=== PATIENT | female | born 1960 | race Caucasian/White ===

== ENCOUNTER 2018-08-12 10:46 | Outpatient (CLI) | payer OTHER ==
--- NOTE | 2018-08-12 12:40 | MMO ---
BILATERAL SCREENING MAMMOGRAM: History: 58-year-old female. Routine screening mammography. Comparison: 05-17-17, 11-19-15, 10-04-14, 08-18-13 Technique: CC and MLO views of both breasts were submitted for interpretation. This study is interpreted with the assistance of computer aided detection. FINDINGS: Breasts are composed of heavily dense fibroglandular tissue which limits sensitivity of mammography i n the detection of underlying malignancy. Bilaterally, no suspicious dominant mass, architectural dis tortion or suspicious calcifications. Benign appearing calcification in the left breast. IMPRESSION: BIRADS category 2 - benign findings. RECOMMENDATION: Annual mammograms. POS: [facility]
== END 2018-08-12 10:47 | disposition home or self-care (01) ==
LOC: SCSMAMMO 10:46
PROVIDERS: ATTEND Obstetrics & Gynecology
DX: Z12.31 Encounter for screening mammogram for malignant neoplasm of breast (principal)
CPT/HCPCS: 77067

== ENCOUNTER 2019-04-30 07:09 | Outpatient (CLI) | payer OTHER ==
--- NOTE | 2019-04-30 08:14 | MRI ---
MRI LUMBAR SPINE NONCONTRAST: INDICATION: Low back pain. FINDINGS: Conus medullaris is normal in morphology terminating at the L1-2 level. There is no high-grade centr al canal stenosis of the L1-2 or L2-3 levels. L3-4: There is a moderate to large left subarticular disk sequestration superimposed upon central di sk protrusion and disk-osteophyte. There is grade I spondylolisthesis. Severe central canal stenosi s is present. . There is mild to moderate right and mild left neural foraminal narrowing. L4-5: There is moderate central canal narrowing due to broad-based disk-osteophyte. There is mild b ilateral neural foraminal narrowing. L5-S1: Central zone annular fissure is present. There is a small central protrusion with mild narro wing of the central canal and mild to moderate bilateral neural foraminal stenosis. There is end plate edema of inferior L3 and superior L4 compatible with Modic type I degenerative bk nge. Incidental note of gallbladder distention and cholelithiasis. IMPRESSION: 1. Moderate to large disk sequestration superimposed upon disk protrusion at L3-4 along with spondyl olisthesis producing severe central canal stenosis. 2. Moderate distention of the gallbladder with cholelithiasis. POS: [facility]
== END 2019-04-30 07:10 | disposition home or self-care (01) ==
LOC: BICMRI 07:09
PROVIDERS: ATTEND Orthopaedic Surgery
DX: M54.5 Low back pain (principal); M51.26 Other intervertebral disc displacement, lumbar region; M43.16 Spondylolisthesis, lumbar region; M48.061 Spinal stenosis, lumbar region without neurogenic claudication; K80.20 Calculus of gallbladder without cholecystitis without obstruction; K82.8 Other specified diseases of gallbladder
CPT/HCPCS: 72148

== ENCOUNTER 2023-06-26 14:04 | Outpatient (CLI) | payer BC | END 2023-06-26 14:05 | disposition home or self-care (01) | LOC: SCSMRI 14:04 | PROVIDERS: ATTEND Neurological Surgery | DX: M43.16 Spondylolisthesis, lumbar region (principal); M47.816 Spondylosis without myelopathy or radiculopathy, lumbar region; M47.817 Spondylosis without myelopathy or radiculopathy, lumbosacral region; M48.061 Spinal stenosis, lumbar region without neurogenic claudication; M48.07 Spinal stenosis, lumbosacral region; Z96.698 Presence of other orthopedic joint implants; Z98.1 Arthrodesis status | CPT/HCPCS: 72100; 72158 ==